=== PATIENT | female | born 1955 | race Caucasian/White ===

== ENCOUNTER → 2016-12-03 | Outpatient (CLI) | payer BC ==
[~2016-12-03] VITALS: Ht 160 cm; Wt 90.7 kg
[~2016-12-03] MED LIST: CALCIUM 500 +1 EAC4 PO; ONE DAILY TABL1 EACH PO; ZESTORETIC 20-1 EAC1 PO
== END | disposition home or self-care (01) ==
LOC: AMB 08:44
DX: Z12.11 Encounter for screening for malignant neoplasm of colon (principal); D12.0 Benign neoplasm of cecum; D12.2 Benign neoplasm of ascending colon; K57.30 Diverticulosis of large intestine without perforation or abscess without bleeding; K64.8 Other hemorrhoids; I10 Essential (primary) hypertension; E66.9 Obesity, unspecified; Z68.36 Body mass index [BMI] 36.0-36.9, adult; R73.03 Prediabetes; Z82.49 Family history of ischemic heart disease and other diseases of the circulatory system; Z83.3 Family history of diabetes mellitus
CPT/HCPCS: 88305; 93005; B4087

== ENCOUNTER 2017-01-07 08:04 | Emergency (ER) | payer BC ==
[~2017-01-07] VITALS: Ht 160 cm; Wt 90.9 kg
[2017-01-07] MEDS ORDERED: AUGMENTIN875 MG PO (08:47)
[2017-01-07 09:21] VITALS: BP 132/82
== END 2017-01-07 09:22 | disposition home or self-care (01) ==
LOC: EME 08:04 → EXP 08:04
PROC: 3E0234Z Introduction of Serum, Toxoid and Vaccine into Muscle, Percutaneous Approach (ICD-10-PCS; principal; 2017-01-07)
DX: S01.452A Open bite of left cheek and temporomandibular area, initial encounter (principal); S01.25XA Open bite of nose, initial encounter; Z23 Encounter for immunization; W54.0XXA Bitten by dog, initial encounter
CPT/HCPCS: 99281; 99284; J3010